=== PATIENT | male | born 1995 | race African-American/Black ===

== ENCOUNTER 2021-03-30 17:49 | Emergency (ER) | payer SELFPAY ==
[~2021-03-30] VITALS: Ht 180.3 cm; Wt 98.0 kg
[2021-03-30 17:54] VITALS: BP 141/82
== END 2021-03-30 18:50 | disposition left against medical advice (07) ==
LOC: ER 17:49
DX: Z53.21 Procedure and treatment not carried out due to patient leaving prior to being seen by health care provider (principal)